=== PATIENT | female | born 1950 | race Caucasian/White ===

== ENCOUNTER 2017-10-22 09:13 | Day surgery (SDC) | payer MEDICARE, BC ==
[2017-10-22] MEDS ORDERED: LIDOCAINE 2% MDV (20MG/ML) 20ML VIAL IV ONE (09:14)
[2017-10-22] MEDS ORDERED: PROPOFOL 10 MG/ML VIAL IV ONE (09:14)
--- NOTE | 2017-10-23 13:50 | Operative Note ---
DATE OF SURGERY: 10/22/2017 OPERATION: COLONOSCOPY to the cecum with cold biopsy forceps polypectomy. INDICATION: Colorectal cancer screening. Patient with pelvic pain. Rule out primary colon pathology. She has a previous history of irritable bowel syndrome. ANESTHESIA: Intravenous sedation was administered by the department of anesthesiology and included Diprivan titrated to effect. PROCEDURE: Following informed consent from this alert individual including a discussion of the risks and benefits of the procedure and an opportunity for the patient to ask questions, the patient was in the left lateral decubitus position. A digital rectal examination was performed. No abnormalities were detected. Following this, the Olympus [id number] video colonoscope was inserted into the rectum without resistance. The rectal mucosa had a normal appearance with normal folds and distensibility. The colonoscope was advanced up through the bowel to the level of the cecum without much difficulty. The sigmoid colon had scattered diverticula but no other changes were appreciated. The cecum was well defined by noting the appendiceal orifice and ileocecal valve. There was a 3 mm polyp noted at the base of the cecum which was removed with cold biopsy forceps. The colon preparation was good. From the base of the cecum, the colonoscope was then slowly withdrawn. No additional abnormalities were detected. Again sigmoid diverticulosis was apparent. Retroflexion in the rectum failed to demonstrate any changes. The instrument was straightened and removed. The patient tolerated the procedure well and was returned to the recovery area in stable condition. IMPRESSION: 1. Sigmoid diverticulosis. 2. A 3 mm cecal polyp removed with biopsy forceps. RECOMMENDATIONS: Further recommendations will be forthcoming pending results of pathology obtained today. As always, thank you for allowing me to participate in the care of your patient. CC: LEONEL Roque
== END 2017-10-22 11:15 | disposition home or self-care (01) ==
LOC: HOP 09:13
PROVIDERS: ATTEND Internal Medicine Gastroenterology
DX: Z12.11 Encounter for screening for malignant neoplasm of colon (principal); D12.0 Benign neoplasm of cecum; Z87.19 Personal history of other diseases of the digestive system; E78.00 Pure hypercholesterolemia, unspecified; I10 Essential (primary) hypertension; E03.9 Hypothyroidism, unspecified; J45.909 Unspecified asthma, uncomplicated